=== PATIENT | male | born 1995 | race African-American/Black ===

== ENCOUNTER 2017-01-08 02:30 | Emergency (ER) | payer OTHER ==
[~2017-01-08] VITALS: Ht 165.1 cm; Wt 75.0 kg
[2017-01-08 02:45] VITALS: Ht 165.1 cm; Wt 75.0 kg
[2017-01-08] MEDS ORDERED: XYLOCAINE 1%/SOD BICARB 20 ML VIAL INFIL ONE (03:00)
--- NOTE | 2017-01-08 03:01 | EMERGENCY ROOM VISIT NOTE ---
History Report prepared by Scribe: Adrianne Brito Under the Supervision of: Dr. Wendie Fairbanks D.O. First contact with patient: 02:43 Chief Complaint: FALL Stated Complaint: FALL History of Present Illness The patient is a 21 year old male who presents to the Emergency Room with complaints of an episode of a fall occurring just prior to arrival. Per nursing staff, the patient was at a bar when he fell and hit his head. The patient states he was walking in oversized shoes when he tripped and hit his head. He states he feel tired but denies loss of consciousness or neck pain. The patient graduated from [employer] in June and is now working time buyer. He notes drinking but denies any drug use. The patient has no active medical problems. Source of History: patient Onset: just prior to arrival Position: other (global) Quality: other (fall) Timing: other (episode) Associated Symptoms: + fatigue, No neck pain Review of Systems See HPI for pertinent positives & negatives. A total of 10 systems reviewed and were otherwise negative. Past Medical & Surgical Medical Problems: (1) No Known Active Medical Problems Family History No pertinent family history Social History Smoking Status: Current Some Day Smoker Occupation Status: employed Current/Historical Medications No Active Prescriptions or Reported Meds Allergies Coded Allergies: No Known Allergies (Unverified , 12/19/15) Physical Exam Vital Signs Date Time Temp Pulse Resp B/P (MAP) Pulse Ox O2 Delivery O2 Flow Rate FiO2 01/08/17 04:55 87 16 133/78 97 Room Air 01/08/17 02:45 92 16 134/79 97 Room Air Physical Exam HEENT: Head - normocephalic with large vertical 3.5 cm laceration to midline forehead. Dried blood about face. Pupils are 4 mm and reactive to light. Extraocular eye muscles are intact, and sclera are anicteric. Nose - moist nasal mucosa without discharge. Mouth - moist buccal mucosa. Oropharynx is nonerythematous and there is no tonsillar exudate or edema noted. Neck: Supple; no JVD, nuchal rigidity, cervical lymphadenopathy. Heart: Regular rate and rhythm. There is a normal S1 and S2 with no murmurs, clicks, or gallops appreciated. Lungs: Clear to auscultation bilaterally with no wheezes, rales, or rhonchi. Abdomen: Soft, completely nontender, nondistended, with good bowel sounds. There are no palpable pulsatile masses or hepatosplenomegaly. There is no guarding, rigidity, or rebound noted. Extremities: No evidence of cyanosis, clubbing, or edema. There are easily palpable peripheral pulses. Skin: warm and dry with good turgor and no rashes. Medical Decision & Procedures ER Provider Diagnostic Interpretation: Radiology results as stated below per my review and the radiologist's interpretation: CT C SPINE: No fracture or malalignment, mucous retention cyst left maxillary sinus. Radiologist Yoav Lal CT HEAD: No intracranial hemorrhage, mass effect or calvarial fracture. Ventricles are within limits and midline. Right frontal forehead scalp soft tissue injury, laceration. Visualized paranasal sinuses, mastoids and orbits are within limits. Radiologist Yoav Lal Laboratory Results 01/08/17 03:35 Test 01/08/17 03:35 Anion Gap 9.0 mmol/L (3-11) Est Creatinine Clear Calc Drug Dose 113.2 ml/min Estimated GFR () 128.6 Estimated GFR (Non- 111.0 BUN/Creatinine Ratio 9.5 (10-20) Calcium Level 8.7 mg/dl (8.5-10.1) Ethyl Alcohol mg/dL 270.0 mg/dl (0-3) Laboratory results per my review. Procedure Lidocaine HCL INFIL ED Course 0252: Past medical records reviewed. The patient was evaluated in room B7. A complete history and physical exam was performed. Laboratory studies were drawn as above. The patient went for CT scan of his brain and cervical spine as described above. 0300: Lidocaine HCL 20 ml INFIL. 0450: Travis Henry PA-C repaired the patient's 3.5 cm laceration. Reference his procedural note. 0507: The patient is fully awake with sober friend at bedside. 0535: Upon reevaluation, resting comfortably. I discussed findings and results with him. He verbalized agreement of the treatment plan. The patient was discharged home. Medical Decision The patient is a 21 year old male who presents to the Emergency Room with complaints of an episode of a fall occurring just prior to arrival. Differential diagnoses includes:skull fracture closed head injury concussion intracranial trauma, alcohol overdose. Lab results show: alcohol 270, glucose 100, normal renal function. The patient admits to drinking alcohol this evening but states that he tripped over a boot striking his head. There was no loss of consciousness. He did have a large laceration to the forehead from this fall. The wound was repaired by Travis Henry PA-C. I've encouraged him to avoid such excessive alcohol use in the future. He is to rest with his head elevated and he can apply ice to the forehead. He can have the sutures removed in 5 days. Medication Reconcilliation Current Medication List: was personally reviewed by me Blood Pressure Screening Patient's blood pressure: Elevated blood pressure Blood pressure disposition: Elevated BP felt to be situational Impression Primary Impression: Forehead laceration Additional Impressions: Alcohol overdose Fall Scribe Attestation The scribe's documentation has been prepared under my direction and personally reviewed by me in its entirety. I confirm that the note above accurately reflects all work, treatment, procedures, and medical decision making performed by me. Departure Information Dispostion Home / Self-Care Prescriptions No Active Prescriptions or Reported Meds Referrals No Doctor, Assigned (PCP) Forms HOME CARE DOCUMENTATION FORM, IMPORTANT VISIT INFORMATION Patient Instructions ED Laceration Facial Sutr Tape, ED Overdose Alcohol, My [facility] Additional Instructions Avoid such excessive alcohol use in the future Rest. take plenty of clear liquids Use tylenol for headache. Rest with your head elevated. Problem Qualifiers Primary Impression: Forehead laceration Encounter type: initial encounter Qualified Codes: S01.81XA - Laceration without foreign body of other part of head, initial encounter Additional Impressions: Alcohol overdose Encounter type: initial encounter Injury intent: accidental or unintentional Qualified Codes: T51.91XA - Toxic effect of unspecified alcohol , accidental (unintentional), initial encounter Fall Encounter type: initial encounter Qualified Codes: W19.XXXA - Unspecified fall, initial encounter
[2017-01-08 04:33] LABS: BUN/CREATININE RATIO 9.5 (10-20); CALCIUM 8.7 mg/dl (8.5-10.1); CREATININE 0.96 mg/dl (0.60-1.40); POTASSIUM 3.6 mmol/L (3.5-5.1)
[2017-01-08 04:55] VITALS: BP 133/78; PULSE 87; O2SAT 97
--- NOTE | 2017-01-08 04:55 | EMERGENCY ROOM VISIT NOTE ---
ED Visit Note Patient was seen and evaluated at the request of my attending physician, Dr. Fairbanks, for a forehead laceration. Please see Dr. Fairbanks's dictation for full history of present illness and Emergency Department course outside of this repair. In short, the patient has a 3.5 cm fairly linear vertical laceration just to the right of midline of the forehead. This does gape and will require repair Laceration repair. Patient elects to have their laceration repaired. Verbal consent was obtained to perform the procedure. There is an abundance of materials available for the procedure. Patient is not allergic to latex. Using sterile technique the wound was cleaned with Betadine. The area was sterilely draped. 4 ml of 1% buffered lidocaine was used to anesthetize the forehead. Once the patient was anesthetized, the wound was copiously irrigated under pressure with sterile saline. The wound was explored and there were no deep structures injured such as tendons, bone, or significant blood vessels. The laceration was repaired using 8 simple interrupted 5-0 nylon sutures with the wound edges being well approximated. Hemostasis was achieved. The area was cleaned with sterile saline and dressed with bacitracin ointment and bandage. Patient tolerated the procedure well without complications. Blood loss was negligible. Current/Historical Medications No Active Prescriptions or Reported Meds Allergies Coded Allergies: No Known Allergies (Unverified , 12/19/15) Vital Signs Date Time Temp Pulse Resp B/P (MAP) Pulse Ox O2 Delivery O2 Flow Rate FiO2 01/08/17 02:45 92 16 134/79 97 Room Air Laboratory Results 01/08/17 03:35 Test 01/08/17 03:35 Anion Gap 9.0 mmol/L (3-11) Est Creatinine Clear Calc Drug Dose 113.2 ml/min Estimated GFR () 128.6 Estimated GFR (Non- 111.0 BUN/Creatinine Ratio 9.5 (10-20) Calcium Level 8.7 mg/dl (8.5-10.1) Ethyl Alcohol mg/dL 270.0 mg/dl (0-3) Departure Information Prescriptions No Active Prescriptions or Reported Meds Referrals No Doctor, Assigned (PCP) [facility] Instructions [facility]
--- NOTE | 2017-01-08 07:23 | DIAGNOSTIC IMAGING REPORT ---
CERVICAL SPINE W/O CT DOSE: 1155.59 mGy.cm CLINICAL HISTORY: 21 years-old Male with eval for trauma. Acute neck injury status post trauma COMPARISON: CT head of same day. TECHNIQUE: Multiple axial CT images of the cervical spine were obtained without contrast. A dose lowering technique was utilized adhering to the principles of ALARA. FINDINGS: Vertebral body heights and alignment are normal. No fracture or subluxation is identified. The intervertebral disc spaces are preserved. No significant central canal or neural foraminal stenosis is identified. Incidental note is made of moderate polypoid mucosal thickening of the posterior left maxillary antrum with mild right maxillary mucoperiosteal thickening. The cervical soft tissues appear unremarkable. The visualized lung apices appear clear. IMPRESSION: 1. No acute cervical spine fracture or subluxation. 2. Paranasal sinus disease. The above report was generated using voice recognition software. It may contain grammatical, syntax or spelling errors. Electronically signed by: Ronnie Maradiaga M.D. 01/08/2017 7:22 AM Dictated Date/Time: 01/08/2017 7:19 AM
--- NOTE | 2017-01-08 07:26 | DIAGNOSTIC IMAGING REPORT ---
HEAD WITHOUT CONTRAST (CT) CLINICAL HISTORY: 21 years-old Male with eval for trauma. Acute head injury status post trauma with intoxication TECHNIQUE: Multiple axial CT images of the head were obtained without contrast. A dose lowering technique was utilized adhering to the principles of ALARA. COMPARISON: CT cervical spine of same day. FINDINGS: No acute intracranial hemorrhage, midline shift, mass, large territorial ischemia or abnormal extra-axial collection. The calvarium is intact. The mastoid air cells, and middle ear cavities are clear. Note is made of disconjugate gaze. Mild mucoperiosteal thickening of the imaged maxillary and ethmoid sinuses. Mild soft tissue swelling with focal laceration of the right prefrontal soft tissues. No opaque foreign body. IMPRESSION: 1. No acute intracranial abnormality. 2. Mild soft tissue swelling with laceration of the right prefrontal soft tissue. 3. Mild paranasal sinus disease. The above report was generated using voice recognition software. It may contain grammatical, syntax or spelling errors. Electronically signed by: Ronnie Maradiaga M.D. 01/08/2017 7:24 AM Dictated Date/Time: 01/08/2017 7:22 AM
== END 2017-01-08 05:20 | disposition home or self-care (01) ==
LOC: EDBD 02:30 → C.EDB 02:32
DX: S01.81XA Laceration without foreign body of other part of head, initial encounter (principal); T51.91XA Toxic effect of unspecified alcohol, accidental (unintentional), initial encounter; W01.198A Fall on same level from slipping, tripping and stumbling with subsequent striking against other object, initial encounter; Y93.01 Activity, walking, marching and hiking; Y99.8 Other external cause status; Y92.89 Other specified places as the place of occurrence of the external cause; F17.200 Nicotine dependence, unspecified, uncomplicated